=== PATIENT | female | born 1950 | race Caucasian/White ===

== ENCOUNTER 2016-08-19 15:46 | Emergency (ER) | payer MEDICARE, BC ==
[~2016-08-19] VITALS: Ht 170.2 cm; Wt 99.5 kg
[~2016-08-19 15:46] MED LIST: ASPIRIN 81M81 MG/TA2 PO; BENICAR HCT 12.1 TA1 PO; PROZAC 20MG20 MG PO; ZOCOR5 MG
[2016-08-19 15:49] VITALS: BP 133/67; TEMP 97
[2016-08-19] MEDS ORDERED: COZAAR 25MG25 MG/TAB PO (15:54)
[2016-08-19] MEDS ORDERED: NORCO 325 MG-51 TAB PO (17:53)
[2016-08-19 18:24] VITALS: PULSE 73
== END 2016-08-19 18:24 | disposition home or self-care (01) ==
LOC: COL.ER 15:46
DX: S92.355A Nondisplaced fracture of fifth metatarsal bone, left foot, initial encounter for closed fracture (principal); S93.402A Sprain of unspecified ligament of left ankle, initial encounter; X50.1XXA Overexertion from prolonged static or awkward postures, initial encounter; Y92.009 Unspecified place in unspecified non-institutional (private) residence as the place of occurrence of the external cause
CPT/HCPCS: J2405; J3010

== ENCOUNTER → 2017-04-30 | Outpatient (CLI) | payer MEDICARE, BC ==
[~2017-04-30] MED LIST changes: +COZAAR 25MG25 MG/TAB PO; +NORCO 325 MG-51 TAB PO
== END ==
LOC: MC.RAD 08:49
DX: Z12.31 Encounter for screening mammogram for malignant neoplasm of breast (principal)

== ENCOUNTER 2017-06-10 10:54 | Emergency (ER) | payer MEDICARE, BC ==
[~2017-06-10] VITALS: Ht 170.2 cm; Wt 100.0 kg
[2017-06-10 11:00] VITALS: TEMP 98.7
[2017-06-10 11:32] LABS: BASO % 0.6 % (0.0-2.0); EOS # 0.1 (0.0-0.7); EOS % 1.8 % (0-4.0); GRAN # 3.1 (1.4-6.5); GRAN % 61.3 % (42.2-75.2); HEMOGLOBIN 13.4 g/dl (12.5-16.0); LYMPH # 1.4 (1.2-3.4); LYMPH % 27.1 % (20.0-51.0); MEAN CELL VOLUME 87 fl (80.0-100.0); MEAN CORPUSCULAR HEMOGLOBIN 28 pg (27.0-31.0); MEAN CORPUSCULAR HGB CONC 32 g/dl (33.0-37.0); MEAN PLATELET VOLUME 10.4 fl (7.4-10.4); MONO # 0.5 (0.1-0.6); PLATELET COUNT 236 K/mm3 (130-400); RED BLOOD COUNT 4.82 M/mm3 (4.10-5.30); REDCELL DISTRIBUTION WIDTH-CV 13.1 % (11.5-14.5)
[2017-06-10] MEDS ORDERED: ZOLOFT 25MG25 MG PO (11:40)
[2017-06-10 11:41] LABS: INR 0.9 (0.8-3.0); PROTHROMBIN TIME 10.7 SECONDS (9.7-12.8)
[2017-06-10 11:43] LABS: LIPASE 75 U/L (23-300); PARTIAL THROMBOPLASTIN TIME 30.2 SECONDS (26.0-37.0)
[2017-06-10 11:50] LABS: D-DIMER < 200.00 ng/mLDDu (200-230)
[2017-06-10 12:30] LABS: ALANINE AMINOTRANSFERASE 36 U/L (9-52); ALBUMIN 4.2 gm/dL (3.5-5.0); ALKALINE PHOSPHATASE 69 U/L (50-136); ANION GAP 8 mmol/L (7-16); AST,SGOT 27 U/L (15-37); BILIRUBIN,TOTAL 0.2 mg/dL (0.0-1.0); BLOOD UREA NITROGEN 14 mg/dL (7-17); CALCIUM 8.9 mg/dL (8.4-10.2); CARBON DIOXIDE 27 mmol/L (22-30); CHLORIDE 106 mmol/L (98-107); GLUCOSE 92 mg/dL (74-106); POTASSIUM 4.6 mmol/L (3.4-5.0); SODIUM 141 mmol/L (137-145); TOTAL PROTEIN 6.9 gm/dL (6.4-8.2)
[2017-06-10 12:43] LABS: TROPONIN-I < 0.012 ng/mL (0.000-0.034)
[2017-06-10] MEDS ORDERED: NITROSTAT0.3 MG SL (14:58)
[2017-06-10 16:53] VITALS: BP 136/65; PULSE 68
== END 2017-06-10 16:55 | disposition home or self-care (01) ==
LOC: COL.ER 10:54
PROVIDERS: Emergency Medicine
DX: R07.9 Chest pain, unspecified (principal); I10 Essential (primary) hypertension; E78.5 Hyperlipidemia, unspecified
CPT/HCPCS: J2405; J7030

== ENCOUNTER → 2018-08-18 | Outpatient (CLI) | payer MEDICARE, BC ==
[~2018-08-18] MED LIST changes: +NITROSTAT0.3 MG SL; +ZOLOFT 25MG25 MG PO
== END ==
LOC: MC.RAD 07:44
DX: Z12.31 Encounter for screening mammogram for malignant neoplasm of breast (principal)

== ENCOUNTER → 2020-06-25 | Outpatient (CLI) | payer MEDICARE, BC | LOC: MC.RAD 13:27 | DX: Z12.31 Encounter for screening mammogram for malignant neoplasm of breast (principal) ==

== ENCOUNTER → 2021-09-26 | Outpatient (CLI) | payer MEDICARE, BC | LOC: MC.RAD 10:16 | DX: Z12.31 Encounter for screening mammogram for malignant neoplasm of breast (principal) ==

== ENCOUNTER → 2021-10-17 | Outpatient (CLI) | payer MEDICARE, BC ==
[~2021-10-17] VITALS: Ht 170.2 cm; Wt 106.4 kg
[~2021-10-17] MED LIST changes: +LUTEIN 15 MG-0.1 SGL PO; +PRISTIQ 50 MG T50 MG PO; +ULTRAM 50MG TAB50 MG PO; -ZOCOR5 MG; +ZOCOR5 MG PO
[2021-10-17 12:02] VITALS: BP 151/83; PULSE 78; TEMP 98.1
[2021-10-17 13:20] VITALS: BP 153/90; PULSE 77
== END ==
LOC: COL.RAD 11:35
DX: M51.26 Other intervertebral disc displacement, lumbar region (principal)
CPT/HCPCS: J3301

== ENCOUNTER → 2023-03-29 | Outpatient (CLI) | payer MEDICARE ==
[~2023-03-29] VITALS: Ht 170.2 cm; Wt 104.2 kg
[~2023-03-29] MED LIST changes: +ELIQUIS 2.5 PO; +ROBAXIN 50500 MG/TAB PO; +TYLENOL 500MG500 MG PO
[2023-03-29 09:00] VITALS: BP 151/85; PULSE 79; TEMP 98.6
[2023-03-29 09:45] VITALS: BP 136/76; PULSE 79
== END ==
LOC: COL.RAD 08:21
DX: M51.26 Other intervertebral disc displacement, lumbar region (principal)
CPT/HCPCS: J0665; J3301